=== PATIENT | female | born 1980 | race Caucasian/White ===

== ENCOUNTER → 2017-03-27 | Outpatient (CLI) | payer BC ==
[~2017-03-27] VITALS: Ht 170.2 cm; Wt 103.4 kg
[~2017-03-27] MED LIST: ATHENOL325 MG PO; IBUPROFEN800 MG PO; LOVENOX40 MG/0.4 SC; MOTRIN800 MG PO; Micronor PO; NAPROXEN500 MG PO; PREDNISONE20 MG PO; PRENATAL TABLE1 EAC3 PO; PRENATAL1 EACH PO; PROAIR HFA8.5 GM IH; PULMICORT FLE180 MCG IH; PULMICORT180 MICROG IH; PULMICORT90 MICROGR; SINGULAIR10 MG PO; ZYRTEC10 M2 PO; ZYRTEC10 M3 PO
[2017-03-27 10:31] VITALS: BP 133/77
== END | disposition home or self-care (01) ==
LOC: IVINF 10:16
DX: Z31.82 Encounter for Rh incompatibility status (principal); Z3A.00 Weeks of gestation of pregnancy not specified; Z67.91 Unspecified blood type, Rh negative; O09.899 Supervision of other high risk pregnancies, unspecified trimester
CPT/HCPCS: 96372; J2790

== ENCOUNTER 2017-06-13 08:07 | Inpatient (IN) | payer BC ==
[~2017-06-13] VITALS: Ht 167.6 cm; Wt 110.0 kg
[2017-06-13] VITALS (18 sets, daily range): BP systolic 116–152; BP diastolic 61–86
[2017-06-13 09:22] LABS: BASOPHIL (%) 0.5 % (0-1); EOSINOPHIL COUNT 0.5 K/uL (0-0.3); HEMATOCRIT 37.2 % (36.0-46.0); HEMOGLOBIN 11.9 G/DL (11.9-15.5); IMMATURE GRANULOCYTE (%) 0.8 % (0.0-0.7); LYMPHOCYTE (%) 14.4 % (15-42); LYMPHOCYTE COUNT 1.1 K/uL (1.0-2.8); MCH 28.4 PG (29.0-34.0); MCV 88.8 FL (83-99); MONOCYTE (%) 6.8 % (3-12); MONOCYTE COUNT 0.5 K/uL (0-0.8); NEUTROPHIL (%) 71.5 % (45-76); NEUTROPHIL COUNT 5.6 K/uL (1.8-6.4); PLATELET COUNT 251 K/uL (156-360); RBC DIS.WIDTH-CV 13.2 % (11.8-14.6); RED BLOOD COUNT 4.19 M/uL (3.80-5.20); WHITE BLOOD COUNT 7.9 K/uL (4.1-10.2)
[2017-06-13 23:44] LABS: AMPHETAMINE NEGATIVE (500 ng/mL); BARBITURATES NEGATIVE (200 ng/mL); BENZODIAZEPINES NEGATIVE (150 ng/mL); BUPRENORPHINE NEGATIVE (10 ng/mL); COCAINE NEGATIVE (150 ng/mL); METHADONE NEGATIVE (200 ng/mL); METHAMPHETAMINE NEGATIVE (500 ng/mL); OPIATES (MORPHINE) NEGATIVE (100 ng/mL); OXYCODONE NEGATIVE (100 ng/mL); PHENCYCLIDINE NEGATIVE (25 ng/mL); PROPOXYPHENE NEGATIVE (300 ng/mL); THC CANNABINOIDS NEGATIVE (50 ng/mL); TRICYCLIC ANTIDEPRESSANTS NEGATIVE (300 ng/mL)
[2017-06-14] VITALS (20 sets, daily range): BP systolic 109–148; BP diastolic 60–91
[2017-06-15 07:16] LABS: BASOPHIL (%) 0.7 % (0-1); BASOPHIL COUNT 0.1 K/uL (0-0.1); EOSINOPHIL (%) 7.4 % (0-5); EOSINOPHIL COUNT 0.5 K/uL (0-0.3); HEMATOCRIT 34.1 % (36.0-46.0); IMMATURE GRANULOCYTE (%) 0.3 % (0.0-0.7); LYMPHOCYTE (%) 20.9 % (15-42); LYMPHOCYTE COUNT 1.5 K/uL (1.0-2.8); MCHC 32.3 G/DL (30.0-36.0); MONOCYTE (%) 5.8 % (3-12); MONOCYTE COUNT 0.4 K/uL (0-0.8); NEUTROPHIL (%) 64.9 % (45-76); NEUTROPHIL COUNT 4.7 K/uL (1.8-6.4); PLATELET COUNT 217 K/uL (156-360); RBC DIS.WIDTH-CV 13.6 % (11.8-14.6); RBC DIS.WIDTH-SD 44.5 % (39-53); RED BLOOD COUNT 3.79 M/uL (3.80-5.20); WHITE BLOOD COUNT 7.3 K/uL (4.1-10.2)
[2017-06-15 07:20] VITALS: BP 143/87
[2017-06-15 08:00] VITALS: BP 132/78
== END 2017-06-15 15:51 | disposition home or self-care (01) | DRG 775 ==
LOC: LDRP-OP → 2WEST → LDRP-OP 08:07 → 2WEST 08:08 → LDRP-OP 09:26 → 2WEST 06-14 01:55 → LDRP-OP 07-17 12:44
PROVIDERS: Advanced Practice Midwife
PROC: 3E0P7GC Introduction of Other Therapeutic Substance into Female Reproductive, Via Natural or Artificial Opening (ICD-10-PCS; 2017-06-13)
PROC: 10907ZC Drainage of Amniotic Fluid, Therapeutic from Products of Conception, Via Natural or Artificial Opening (ICD-10-PCS; 2017-06-13)
PROC: 00HU33Z Insertion of Infusion Device into Spinal Canal, Percutaneous Approach (ICD-10-PCS; 2017-06-13)
PROC: 10E0XZZ Delivery of Products of Conception, External Approach (ICD-10-PCS; principal; 2017-06-14)
PROC: 3E0S3BZ Introduction of Anesthetic Agent into Epidural Space, Percutaneous Approach (ICD-10-PCS; 2017-06-14)
DX: O99.214 Obesity complicating childbirth (principal); O36.0931 Maternal care for other rhesus isoimmunization, third trimester, fetus 1; E66.9 Obesity, unspecified; J45.909 Unspecified asthma, uncomplicated; O99.52 Diseases of the respiratory system complicating childbirth; Z37.0 Single live birth; Z3A.39 39 weeks gestation of pregnancy; O22.43 Hemorrhoids in pregnancy, third trimester; O12.04 Gestational edema, complicating childbirth; O76 Abnormality in fetal heart rate and rhythm complicating labor and delivery; Z79.51 Long term (current) use of inhaled steroids; Z86.718 Personal history of other venous thrombosis and embolism; Z68.39 Body mass index [BMI] 39.0-39.9, adult; O69.81X1 Labor and delivery complicated by cord around neck, without compression, fetus 1
CPT/HCPCS: 83030; 85025; 86850; 86870; 86900; 86901; C1755; G0378; J0595; J2790; J3010; J7120; S0020